=== PATIENT | female | born 2000 | race Caucasian/White ===

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

== ENCOUNTER 2024-11-26 13:26 | Emergency (ER) | payer SELFPAY ==
[~2024-11-26] VITALS: Ht 154.9 cm; Wt 77.0 kg
[~2024-11-26 13:26] MED LIST changes: +PRENATA3 PO
[2024-11-26] MEDS ORDERED: CIPROFLOXACIN/D1 SUS AS (14:26)
[2024-11-26 14:38] VITALS: BP 132/87
== END 2024-11-26 14:41 | disposition home or self-care (01) | DRG 156 ==
LOC: ED 13:26
DX: H60.92 Unspecified otitis externa, left ear (principal); Z72.0 Tobacco use